=== PATIENT | male | born 1950 | race Caucasian/White ===

== ENCOUNTER 2021-02-02 20:40 | Inpatient (IN) | payer MEDICARE, MEDICAID, SELFPAY ==
[2021-02-02 20:47] VITALS: BMI 18.4
[2021-02-02 20:53] VITALS: BP 106/75; PULSE 75; RESP 19; TEMP 36.8; O2SAT 96
[2021-02-02 21:45] VITALS: O2SAT 96
[2021-02-02 22:44] LABS: NT-proBNP (BNP-Adult 18+) 178 pg/mL (<125)
--- NOTE | 2021-02-02 22:46 | PC.NURSE ---
approximately 1829: [place] [facility] spoke w/ Yocasta, RN who gave partial report on patient Mario Alberto: alert, oriented, pleasant. has had CIWA thru the day of 15-18 after drinking several boxes of wine/day and deciding to go clean and sober, ended up getting picked up by EMT's in the middle of the street. RN reports patient's only complaint at this time was c/o nausea, anxiety. but that he was clear and oriented, & understood the situation at hand. reportedly VS were stable except for HR in the 130's - 150's. denies CP, just has minor c/o nausea, anxiety and he is fidgeting. this RN asked what the CIWA was a this time accounting for the nausea, anxiety and fidgeting. she reported ciwa 10 & that his HR was 130's to 150's. I asked Yocasta to please address the tachy and that the CIWA has to be < 10 prior to transport. 1929: call from [place] from [facility] in [place]. reports patient has converted, is now NSR 72 & CIWA 9. 2100: arrived to floor via stretcher, accompanied by two devulcanizer tender. patient is very alert, boisterous. skin is flushed red, warm to touch. able to stand pivot from stretcher to bed, nearly falling off the side of the bed. able to state his name, birthday, unable to state what day it is, but knows to locate it on the white board. pleasant and cooperative. allowed seizure pads to be placed on bed. hx of DT's and ETOH withdrawal. requested something cold to drink, as his mouth very dry. EMT's did not have a diet order; reports the staff at [facility] [place] h20 w/o problem in ED. skin check w/ Rae at end of PM shift, skin is flushed red, warm. short PIV/ two lumen is on right wrist, wrapped w/ coban. Tele applied, Vs are stable. oriented to room, call light. IVF infusing per order. report on above given to DOMINGO ARIAS.
[2021-02-02 23:36] VITALS: BP 105/63; PULSE 75; RESP 16; TEMP 36.7; O2SAT 96
[2021-02-03] VITALS (11 sets, daily range): BP systolic 122–147; BP diastolic 64–93; PULSE 66–79; RESP 16–18; TEMP 36.1–37; O2SAT 94–98
[2021-02-03] MEDS: LACTATED RINGERS 1,000 ML 100 ML IV ×3 (00:26→18:30)
[2021-02-03 01:13] LABS: Clostridium Difficile Tox PCR Positive for C. diff (Negative)
[2021-02-03] MEDS: VANCOMYCIN 125 MG CAPSULE PO ×4 (01:53→20:23)
--- NOTE | 2021-02-03 02:50 | P.HP_ITS ---
History of Present Illness History of Present Illness Date Patient Seen: 02/02/21 Time Patient Seen: 21:44 Chief complaint: [facility] Narrative: Patient Bo Green is a 70-year-old male who of arrived at [facility] ED via EMS, although patient's account is slightly different he reports that he drove to the ED. patient has a long-term history of alcohol abuse (drinks 2 boxes of wine QD) and has had repeated alcohol withdrawal syndrome complications, also history of hypertension, BPH, scoliosis, arthritis, prostate and bladder cancer, stroke, hepatitis-C which has fully treated in remission, and hyperlipidemia. Patient r eports that he last had a drink at approximately 7:00 a.m. just a little bit, and then drove himself to the [facility] ED where he arrived by ambulance at approximately 9:10 a.m. ED diagnosis alcohol withdrawal syndrome with complication, bilateral low back pain with sciatica, enteritis, leukocytosis. Patient was then excepted by hospitalists here at [facility] for transfer due to requiring higher level of medical care. Patient arrived at approximately 9:30 p.m. to [facility]. Patient's vitals last documented at [place] were temp 97.9?, BP 106/70, HR 83, R 19, O2 saturation 96% on room air. Patient was found to have an elevated WBC 19.9, neutrophils #15.9, HGB 19.4, HCT 56.8, platelet 1015, potassium 5.2, glucose 113, total protein 8.2, total creatinine kinase 34, ammonia 23, EtOH 0.8330, lipase, TSH, and troponin all WNL, Mag 2.2. Patient did have an ammonia of 23, patient's cognitive baseline is unknown but no documentation of hepatic encephalopathy present on seizure really record. Given a loading dose of phenobarbital per [facility] protocol-patient received initial dose of 260 mg, followed by 130 mg, followed by an additional 130 mg, and 50 mg of fentanyl. Patient had a negative COVID test. CT of abdomen/pelvis with contrast demonstrated fluid throughout loops of small bowel with increased bowel wall enhancement and mild thickening possibly suggestive of enteritis. Redemonstration of horseshoe kidney, no hydronephrosis. No evidence of metastatic disease within the abdominal/pelvis. Redemonstrated of right basilar consolidation favored to represent rounded atelectasis/posttraumatic scarring. Patient had been seen on 01/23/2021 for a left arm cellulitis secondary to IV injection of heroin, possibly with a contaminated needle. Patient states that he never uses heroin but did on this 1 occasion. Patient denied use of any other recreational substances. Patient had been started on Bactrim and Keflex, left AC greatly improved no raised inflamed, or warmth, to site. Puncture james remains open and visible, mild erythema without drainage. Paramedics reported to the nurse upon admit that the patient had demonstrated atrial fibrillation du ringthe ambulance ride over, patient has no history of atrial fib and has demonstrated normal sinus rhythm on telemedicine. No other sites of erythema present. Patient is resting comfortably in bed denies chest pain, shortness of breath, nausea, vomiting, diarrhea, chills, fever, body aches, headache, changes in vision, weakness, tingling, blood in urine or stool, recent illness injury or trauma. Admitted for alcohol withdrawal, and leukocytosis of unknown etiology. Patient History Medical History (Updated 02/03/21 @ 03:20 by JOVON Cardenas) Abscess of left arm Alcohol abuse Arthritis BPH (benign prostatic hyperplasia) Essential hypertension History of bladder cancer History of hepatitis C virus infection History of prostate cancer Hyperlipidemia IV drug user Scoliosis Surgical History (Updated 02/03/21 @ 03:11 by JOVON Cardenas) History of appendectomy History of neck surgery History of prostate surgery History of surgery on wrist History of tonsillectomy Family & Social History Family History Mother Cancer Father Cancer Social History: household members friend(s) Prior Living Arrangements House Safety & Behavioral: Feels Safe in Current Yes Environment Been Physically Hurt or No Threatened By a Person Suicidal Ideation Description None Suicide Plan Description No Plan Tobacco & Substance use: alcohol intake current alcohol intake frequency 3 or more drinks per day, (reports 2 boxes of wine per day and/or 5 cans of beer per week) Substance Use Type marijuana, heroin reported use IV injection x1 once Tobacco: Quit April 2015, continues to use smokeless tobacco/2 Meds Home Medications and Allergies Home Medications Medication Instructions Recorded Confirmed Type Lactobacillus rhamnosus GG 15 1 cap PO DAILY 02/02/21 02/02/21 History billion cell sprinkle capsule ascorbic acid (vitamin C) 1,000 mg 1,000 mg PO DAILY 02/02/21 02/02/21 History tablet cephalexin 500 mg capsule 500 mg PO TID 02/02/21 02/02/21 History lorazepam 1 mg tablet 1 mg PO Q6H PRN 02/02/21 02/02/21 History metoprolol tartrate 25 mg tablet 25 mg PO BID 02/02/21 02/02/21 History oxycodone-acetaminophen 5 mg-325 1 tab PO Q6H PRN 02/02/21 02/02/21 History mg tablet sulfamethoxazole 800 1 tab PO BID 02/02/21 02/02/21 History mg-trimethoprim 160 mg tablet tamsulosin 0.4 mg capsule 0.4 mg PO BEDTIME 02/02/21 02/02/21 History Allergies Allergy/AdvReac Type Severity Reaction Status Date / Time No Known Drug Allergies Allergy Verified 02/02/21 22:57 Review of Systems Review of Systems Narrative: All 12 point systems reviewed with the patient and are negative except otherwise documented. Exam Vital Signs (past 8 hours): - 02/02/21 20:53 02/02/21 21:45 02/02/21 23:36 Temperature 98.2 F 98.0 F Pulse Rate 75 75 Respiratory Rate 19 16 Blood Pressure 106/75 105/63 Pulse Oximetry 96 96 96 02/03/21 01:30 Temperature Pulse Rate Respiratory Rate Blood Pressure Pulse Oximetry 96 Oxygen Delivery Method Room Air Oxygen Flow Rate 0 Narrative Exam Narrative: General: Patient is a thin poorly nourished delightful male, in no distress at this time. HEENT: Normocephalic, atraumatic, extraocular muscles intact, oral pharynx is clear and mucous membranes are dry. Neck is supple and symmetric, trachea is midline, no adenopathy, no thyroid enlargement, nontender, no masses palpated. Negative for JVD Chest: Normal AP diameter and contour without kyphoscoliosis, no nasal flaring, retractions, or tachypneic labored Lungs: Auscultation of all lung molina are clear dimished without adventitious sounds, wheezes, rhonchi, or rales. Cardio: S1 & S2 with regular rate and rhythm without murmur, rubs, or gallops, no carotid bruit, no cardiac pulsations present. Abdomen: Soft nontender, negative for organomegaly, or masses. Bowel sounds are present in all 4 quadrants without guarding or rebound, no CVA tenderness. Musculoskeletal: Muscle tone in decreased but are equal throughout, no deformity, crepitus, effusions, cyanosis, clubbing or edema present. Full range of motion intact radial and pedal pulses are normal. Noted Left AC, puncture sign dry with mild surrounding erythema without inflammation, tenderness or drainage. Skin: Warm dry and intact without rashes, ulcerations or petechiae. Neuro: Alert and orientated x3, sensation to touch intact, no gross deficits noted of cranial nerves. Psych: Patient has a poorly-kept appearance, appropriate affect, mental status attitude thought context and judgment are appropriate for age. Objective Labs Labs: Laboratory Results - last 24 hr 02/02/21 02/02/21 21:58 23:59 NT-Pro-B Natriuret Pep 178 H C. difficile Tox (PCR) Positive for c. diff H Assessment & Plan Assessment & Plan narrative: Patient Bo Green is a 70-year-old male with a long-term history of alcohol abuse (drinks 2 boxes of wine/5cans of beer QD), repeated alcohol withdrawal syndrome w/complications, hypertension, BPH, s coliosis, arthritis, prostate and bladder cancer, stroke, hepatitis-C (treated), and hyperlipidemia who was at [facility] ED for alcohol withdrawal syndrome with complications, an a recent history of left arm cellulitis secondary to IV heroin injection. Patient was transferred to [facility] for higher acuity medical care and management. 1. Alcohol withdrawal, in the setting of chronic alcohol abuse, tobacco abuse, with a secondary IV heroin injection resulting in cellulitis of left arm, acute, present on admission -I personally reviewed patient's medical records from [facility] - potassium 5.2, glucose 113, total protein 8.2, total creatinine kinase 34, ammonia 23, EtOH 0.8330, lipase, TSH, and troponin all WNL, Mag 2.2. -Patient did have an ammonia of 23, patient's cognitive baseline is unknown but no documentation of hepatic encephalopathy in [place] record. -Given loading dose of phenobarbital per [facility] protocol-patient received initial dose of 260 mg,130 mg, 130 mg, and 50 mg of fentanyl-at [place]. -patient to be monitored on tele medicine, vital signs q.4 hours, intake and output monitored Q shift, weight measure daily, diet:Heart Healthy. -monitor for hepatic encephalopathy, left arm cellulitis/worsening signs of infection, Sepsis, septic shock, seizures -once I determine the site of infection will prescribe appropriate antibiotics for coverage. - CIWA protocol- Ativan per protocol-may consider PRN or scheduled phenobarbital, aspiration, seizure, fall precautions/protocols -IV fluid: LR @100 cc/hour. - A.m. labs CBC, CMP, Mag, phosphorus, ammonia, PT and PTT-will continue to monitor electrolytes magnesium and phosphorus -patient given thiamin and folic acid -patient will be provided with alcohol, substance cessation, recommend outpatient Support Service management. 2. Leukocytosis of unknown etiology, acute, present on admission -WBC 19.9, neutrophils #15.9, HGB 19.4, HCT 56.8, platelet 1015 -CT ABD/pelvis with contrast: fluid throughout loops of small bowel with increased bowel wall enhancement and mild thickening possibly suggestive of enteritis. Redemonstration of horseshoe kidney, no hydronephrosis. No evidence of metastatic disease within the abdominal/pelvis. Redemonstrated of right basilar consolidation favored to represent rounded atelectasis/posttraumatic scarring. -Ordered: Blood cultures x2, CDiff, UA, BNP -IV Fluids: LR@100cc/Hr 3. Malnutrition as evidence by BMI of 18.5, acute on chronic, present on admission -recommend dietary consult for supplemental oral nutrition, and recommended high-protein intake diet of 1.2-1.5 grams/kg/day-for elevated ammonia Code status: Full code Surrogate decision maker: Anjana Marino COVID PCR: Negative 02/02/2021 COVID vaccination: Moderna 2020 DVT/VTE prophylaxis: Heparin 5000 units and SCDs Disposition: Expected length of stay greater than 2 midnights I have utilized all available immediate resources to obtain, update, or review the patient's current medications. I confirmed that the patient's advanced care plan is present, Code status is documented and/or surrogate decision maker is listed in the patient's medical record. COVID-19 COVID-19 status: Negative Result date/Date tested (Pos, Neg/Pending): 09/09/21 Time Spent With Patient Critical Care time: I spent a total of [] minutes of critical care time on this patient's care today; this time is exclusive of procedural time.
[2021-02-03 06:10] LABS: Add Manual Diff / Slide Review NO; Basophils Absolute Auto 100 /uL (0-100); Basophils Percent Auto 0.9 % (0-2); Eosinophils Absolute Auto 100 /uL (0-450); Eosinophils Percent Auto 1.2 % (2-4); Hematocrit 51.1 % (41-53); Hemoglobin 17.2 g/dL (13.5-17.5); Lymphocytes Absolute Auto 2600 /uL (1100-4500); Mean Corpuscular HGB Conc 33.6 % (30-36); Mean Corpuscular Hemoglobin 29.4 PG (26-34); Mean Corpuscular Volume 87.7 fL (80-100); Monocytes Absolute Auto 800 /uL (0-900); Monocytes Percent Auto 6.1 % (3-14); Neutrophils Absolute Auto 9200 /uL (1500-7000); Neutrophils Percent Auto 71.8 % (50-75); Platelet Count 771 X10^3/uL (150-400); Red Blood Cell Count 5.83 X10^6/uL (4.5-5.9); White Blood Cell Count 12.8 X10^3/uL (4.5-11.0)
[2021-02-03 06:13] LABS: Ammonia (NH3) < 9 umol/L (9-30)
[2021-02-03 06:19] LABS: INR 1.2 (0.9-1.3)
[2021-02-03 06:22] LABS: PTT Partial Thromboplastin Tim 34 SECONDS (26.4-36.2)
[2021-02-03 06:29] LABS: Alanine Aminotransferase 16 IU/L (<50); Albumin 3.6 g/dL (3.5-5.0); Albumin Globulin Ratio 1.3 (1.0-2.8); Alkaline Phosphatase 79 U/L (38-126); Aspartate Aminotransferase 28 IU/L (17-59); BUN Creatinine Ratio 29.3 (6-22); Bilirubin Total 0.5 mg/dL (0.2-1.3); Blood Urea Nitrogen 22 mg/dL (9-20); Calcium 8.5 mg/dL (8.4-10.2); Carbon Dioxide 27 mmol/L (22-32); Chloride 102 mmol/L (98-107); Cholesterol 188 mg/dL (140-199); Estimated Glomerular Filt Rate > 60.0 mL/min (>60); Globulin 2.8 g/dL (1.7-4.1); Glucose 105 mg/dL (80-110); HDL Cholesterol 65 mg/dL (40-60); HEMOLYSIS < 15 (0-50); LDL Cholesterol Calculated 108 mg/dL (<100); Magnesium 1.8 mg/dL (1.6-2.3); Potassium 4.7 mmol/L (3.4-5.1); Sodium 134 mmol/L (137-145); Total Protein 6.4 g/dL (6.3-8.2); Triglycerides 74 mg/dL (35-150)
[2021-02-03 06:43] LABS: Magnesium 1.9 mg/dL (1.6-2.3); Phosphorous 2.4 mg/dL (2.3-3.7)
[2021-02-03 08:14] LABS: Platelet Morphology Comment I; RBC Morphology Normal Morphology
[2021-02-03] MEDS: MULTIVITAMIN 1 TABLET 1 TAB PO (09:08)
[2021-02-03] MEDS: SODIUM CHLORIDE 0.9% FLUSH 10 ML IV (09:08)
[2021-02-03] MEDS: THIAMINE 100 MG TABLET PO (09:08)
[2021-02-03] MEDS: FOLIC ACID 1 MG TABLET PO (09:08)
[2021-02-03] MEDS: HEPARIN 5,000 UNIT/ML VIAL 5000 UNIT SUBCUT ×2 (09:08→20:23)
[2021-02-03] MEDS: LORazepam 1 MG TABLET PO (09:16)
[2021-02-03 10:42] LABS: Bacteria Urine None Seen; RBC Urine None Seen (0-5/HPF); WBC Urine None Seen (0-5/HPF)
[2021-02-03 10:53] LABS: Culture Indicated Urine Cult Not Indicated; Urine Comments Microscopic Normal
--- NOTE | 2021-02-03 15:03 | CM.IDA ---
Initial DCP Assessment Note Pt is a 70 yo male, resident of [place], arrives from [facility] after being found wandering the streets, intoxicated. Patient transferred to [facility] for medical management through ETOH w/d. H/o heavy ETOH and repeated alcohol withdrawal syndrome complications PCP: Zarina Faust [facility] Payer: Kayden CORLEY/OWEN Reviewed chart, pt discussed in multidisciplinary rounds. Patient is improving and may be medically stable for DC tomorrow. Met w/patient, introduced role. Patient lives in a cabin in [place] with 2 roommates. Patient states he is recently retired, not , no children, states he is use to being busy and lately boredom has been leading to his binge drinking. Patient has been drinking at least two boxes of wine daily for approx 2 weeks, was sober before that but could not give a period of sobriety. Patient admits to IVDU in his youth and once recently w/a girlfriend. Denies daily IVDU. Patient admits to symptoms of depression; loss of appetite, interrupted sleeping patterns, loss in interest in daily activities and increased drinking. This [facility] EDGER strongly encouraged patient to follow up with his PCP to discuss this, patient may be appropriate for antidepressant medication in addition to counseling. Patient tells this [facility] EDGER he will get a friend to take him home upon discharge and denies further needs at this time from this [facility] EDGER. Patient does not want outpatient resources for addiction services/treatment at this time. No needs expected from DC planning team although will remain available in case this changes before DC. Dr Hansen updated. MAXI Vila Discharge Planning/Care Management CM Discharge Assessment Start: 02/03/21 14:34 Freq: Status: Active Protocol: Document 02/03/21 14:57 RAMONA (Rec: 02/03/21 15:02 RAMONA [id number]) Discharge Planning Assessment Assigned Signal Circuit Designer MAXI Vila DPOA/Assigned Designee Name Lashell Marino, friend P# [phone] Contact Information Red Cheng, friend P# Advance Directives? No History Provided By Patient Prior Living Arrangements House Household Members friend(s) Type of transporation used prior to Drives own vehicle admit Independent with ADL's Yes Is patient alert and oriented? Yes Barriers to Discharge No Transportation Arrangement Likely friend vs taxi Referrals Initiated None needed
--- NOTE | 2021-02-03 16:11 | DIET.CONS ---
Dietary Consultation Note Admission Date: 02/02/2021 20:40 Assessment: 70 y/o M admitted with ETOH withdraw and malnutrition. Reports about 8.7% weight loss over the last 3-6 months. States he is unsure of weight or food intake hx and cannot give specifics. Overall, reports low or inconsistent PO over the last 6 months related to skipped meals (people he lives with often skip meals per his report) and/or ETOH use. Denies food insecurity. States he tries to eat three times per day at home. Likes protein shakes. Severe PCM presents with muscle loss indicated by pt's protruding clavicle, noticeable muscle loss over temporal region, substance abuse hx, low PO reported, and low BMI. Currently receiving thiamine, folic acid and MVI. Ht: 175.26 cm Wt: 58.1 kg BMI: 18.4 Reported UBW: 137-150# Last BM: 02/03/21 (02/03/21 01:55) MNA: 5 Edouard Score: 20 Diet: 02/03/21 Lunch General (Regular) Diet Diet Modifications: Percent of last meal consumed (last 48h) Percent Meal Consumed 100% 02/03/21 14:37 Labs: Refeeding labs reviewed and WNL at this time. RBC 5.83 X10^6/uL (4.5-5.9) 02/03/21 05:42 Hgb 17.2 g/dL (13.5-17.5) 02/03/21 05:42 Hct 51.1 % (41-53) 02/03/21 05:42 Creatinine 0.75 mg/dL (0.66-1.25) 02/03/21 05:42 NT-Pro-B Natriuret Pep 178 pg/mL (<125) H 02/02/21 21:58 Nutrition Diagnosis: Severe PCM r/t ETOH abuse and inadequate energy intake aeb muscle wasting, reported low PO, low BMI, and weight loss Interventions: ONS vanilla Ensure BID, pt at risk for refeeding Monitoring/Evaluations: PO, ONS tolerance, weight, refeeding labs
--- NOTE | 2021-02-03 16:11 | PM.PN.1 ---
Subjective Subjective Date Patient Seen: 02/03/21 Time Patient Seen: 08:00 Interval history: Today he is feeling improved. Per nurse overnight he had multiple loose stools. Today he has not had any further. No abdominal pain. He feels slightly shaky, but otherwise he says he has had bad alcohol withdrawal before and this time feels well. Exam Vital Signs (past 8 hours): - 02/03/21 08:44 02/03/21 09:00 02/03/21 10:51 Temperature 97.8 F Pulse Rate 76 78 Respiratory Rate 18 18 Blood Pressure 127/90 147/93 H Pulse Oximetry 98 94 02/03/21 11:00 02/03/21 13:00 Temperature 97.8 F Pulse Rate Respiratory Rate 18 Blood Pressure 147/93 H Pulse Oximetry 95 95 Oxygen Delivery Method Room Air Oxygen Flow Rate 0 Narrative Exam Narrative: General:?no acute distress Lungs:? clear bilateraly, with no wheezes, rhonchi, rales Cardio:? regular rate and rhythm with no murmurs Abdomen:? Soft nontender, no organomegaly SKIN: left AC track james, no evidence of infection Skin:? Warm dry and intact without rashes, ulcerations or petechiae.? Neuro:? Alert and orientated x3, moving all extremities with no gross deficits Psych:? pleasant, cooperative Objective Labs Result Diagrams: 02/03/21 05:42 02/03/21 05:42 Labs: Laboratory Results - last 24 hr 02/02/21 02/02/21 02/02/21 21:58 21:58 23:59 WBC RBC Hgb Hct MCV MCH MCHC RDW Plt Count Neut % (Auto) Lymph % (Auto) [place] % (Auto) Eos % (Auto) Baso % (Auto) Neut # (Auto) Lymph # (Auto) [place] # (Auto) Eos # (Auto) Baso # (Auto) Plt Morphology Comment RBC Morphology PT INR APTT Sodium Potassium Chloride Carbon Dioxide BUN Creatinine Estimated GFR BUN/Creatinine Ratio Glucose Calcium Phosphorus 2.4 Magnesium 1.9 Total Bilirubin AST ALT Alkaline Phosphatase Ammonia NT-Pro-B Natriuret Pep 178 H Total Protein Albumin Globulin Albumin/Globulin Ratio Triglycerides Cholesterol LDL Cholesterol, Calc HDL Cholesterol Urine RBC Urine WBC Urine Bacteria Ur Culture Indicated? Micro UA Comment C. difficile Tox (PCR) Positive for c. diff H 02/03/21 02/03/21 02/03/21 05:42 05:42 05:42 WBC 12.8 H RBC 5.83 Hgb 17.2 Hct 51.1 MCV 87.7 MCH 29.4 MCHC 33.6 RDW 16.0 H Plt Count 771 H Neut % (Auto) 71.8 Lymph % (Auto) 20.0 L [place] % (Auto) 6.1 Eos % (Auto) 1.2 L Baso % (Auto) 0.9 Neut # (Auto) 9200 H Lymph # (Auto) 2600 [place] # (Auto) 800 Eos # (Auto) 100 Baso # (Auto) 100 Plt Morphology Comment I RBC Morphology Normal morphology PT 13.0 H INR 1.2 APTT 34 Sodium 134 L Potassium 4.7 Chloride 102 Carbon Dioxide 27 BUN 22 H Creatinine 0.75 Estimated GFR > 60.0 BUN/Creatinine Ratio 29.3 H Glucose 105 Calcium 8.5 Phosphorus Magnesium 1.8 Total Bilirubin 0.5 AST 28 ALT 16 Alkaline Phosphatase 79 Ammonia NT-Pro-B Natriuret Pep Total Protein 6.4 Albumin 3.6 Globulin 2.8 Albumin/Globulin Ratio 1.3 Triglycerides 74 Cholesterol 188 LDL Cholesterol, Calc 108 H HDL Cholesterol 65 H Urine RBC Urine WBC Urine Bacteria Ur Culture Indicated? Micro UA Comment C. difficile Tox (PCR) 02/03/21 02/03/21 05:42 10:25 WBC RBC Hgb Hct MCV MCH MCHC RDW Plt Count Neut % (Auto) Lymph % (Auto) [place] % (Auto) Eos % (Auto) Baso % (Auto) Neut # (Auto) Lymph # (Auto) [place] # (Auto) Eos # (Auto) Baso # (Auto) Plt Morphology Comment RBC Morphology PT INR APTT Sodium Potassium Chloride Carbon Dioxide BUN Creatinine Estimated GFR BUN/Creatinine Ratio Glucose Calcium Phosphorus Magnesium Total Bilirubin AST ALT Alkaline Phosphatase Ammonia < 9 L NT-Pro-B Natriuret Pep Total Protein Albumin Globulin Albumin/Globulin Ratio Triglycerides Cholesterol LDL Cholesterol, Calc HDL Cholesterol Urine RBC None seen Urine WBC None seen Urine Bacteria None seen Ur Culture Indicated? Cult not indicated Micro UA Comment Microscopic normal C. difficile Tox (PCR) [facility] Medical History (Updated 02/03/21 @ 03:20 by RANJEET Cardenas-) Abscess of left arm Alcohol abuse Arthritis BPH (benign prostatic hyperplasia) Essential hypertension History of bladder cancer History of hepatitis C virus infection History of prostate cancer Hyperlipidemia IV drug user Scoliosis Surgical History (Updated 02/03/21 @ 03:11 by JOVON Cardenas) History of appendectomy History of neck surgery History of prostate surgery History of surgery on wrist History of tonsillectomy Family History Mother Cancer Father Cancer Social History household members: friend(s) alcohol intake: current Assessment & Plan Assessment & Plan narrative: Mr. Green is a 70M with H EtOH abuse, previous episodes of severe EtOH withdrawal, HTN, BPH, prostate/bladder CA, CVA, treated HepC who presents with alcohol withdrawal and found to have c diff colitis. 1. Alcohol withdrawal, in the setting of chronic alcohol abuse, tobacco abuse, and IV heroin abuse -patient loaded per phenobarb protocol in [facility] ED -currently feeling well -plan for CIWA here in hospital -ordered for thiamine, folate, MVI -sw services offered 2. C diff colitis -initial WBC 19.9, improved to 12.8 -CT abdomen showed fluid in small bowel -c diff positive -started PO vancomycin, plan for 2 week course 3. Severe protein calorie malnutrition as evidence by BMI of 18.5 -in setting of EtOH abuse -recommend dietary consult for supplemental oral nutrition, and recommended high-protein intake diet of 1.2-1.5 grams/kg/day-for elevated ammonia Patient doing well with etoh withdrawal, possible dc home within next day Time Spent With Patient Critical Care time: I spent a total of [] minutes of critical care time on this patient's care today; this time is exclusive of procedural time.
[2021-02-04] MEDS: VANCOMYCIN 125 MG CAPSULE PO ×2 (02:00→09:00)
[2021-02-04 02:10] VITALS: BP 133/83; PULSE 64; RESP 16; TEMP 36.8; O2SAT 97
[2021-02-04] MEDS: KETOROLAC 10 MG TABLET PO (02:19)
[2021-02-04 02:25] VITALS: O2SAT 97
[2021-02-04] MEDS: LACTATED RINGERS 1,000 ML 100 ML IV (04:27)
[2021-02-04 06:00] VITALS: O2SAT 96
[2021-02-04 07:00] VITALS: BP 134/92; PULSE 64; RESP 16; TEMP 36.4; O2SAT 97
[2021-02-04 07:50] LABS: Add Manual Diff / Slide Review NO; Basophils Absolute Auto 100 /uL (0-100); Basophils Percent Auto 1.1 % (0-2); Eosinophils Absolute Auto 100 /uL (0-450); Eosinophils Percent Auto 1.6 % (2-4); Lymphocytes Absolute Auto 2500 /uL (1100-4500); Lymphocytes Percent Auto 26.7 % (25-40); Mean Corpuscular HGB Conc 33.3 % (30-36); Mean Corpuscular Hemoglobin 29.8 PG (26-34); Mean Corpuscular Volume 89.6 fL (80-100); Monocytes Absolute Auto 400 /uL (0-900); Monocytes Percent Auto 4.5 % (3-14); Neutrophils Absolute Auto 6300 /uL (1500-7000); Neutrophils Percent Auto 66.1 % (50-75); Platelet Count 702 X10^3/uL (150-400); Red Blood Cell Count 5.69 X10^6/uL (4.5-5.9); Red Cell Distribution Width 16.3 % (11.6-14.8); White Blood Cell Count 9.5 X10^3/uL (4.5-11.0)
[2021-02-04 07:52] LABS: Phosphorous 3.5 mg/dL (2.3-3.7)
[2021-02-04 07:57] LABS: Ammonia (NH3) < 9 umol/L (9-30)
[2021-02-04] MEDS: THIAMINE 100 MG TABLET PO (09:03)
[2021-02-04] MEDS: MULTIVITAMIN 1 TABLET 1 TAB PO (09:03)
[2021-02-04] MEDS: FOLIC ACID 1 MG TABLET PO (09:03)
[2021-02-04] MEDS: HEPARIN 5,000 UNIT/ML VIAL 5000 UNIT SUBCUT (09:04)
[2021-02-04] MEDS: SODIUM CHLORIDE 0.9% FLUSH 10 ML IV (09:04)
--- NOTE | 2021-02-04 09:11 | P.DS_ITS ---
History of Present Illness History of Present Illness Chief complaint: [facility] Narrative: Per [place]andy [place]: Patient Bo Green is a 70-year-old male who of arrived at [facility] ED via EMS, although patient's account is slightly different he reports that he drove to the ED. patient has a long-term history of alcohol abuse (drinks 2 boxes of wine QD) and has had repeated alcohol withdrawal syndrome complications, also history of hypertension, BPH, scoliosis, arthritis, prostate and bladder cancer, stroke, hepatitis-C which has fully treated in remission, and hyperlipidemia. Patient reports that he last had a drink at approximately 7:00 a.m. just a little bit, and then drove himself to the [facility] ED where he arrived by ambulance at approximately 9:10 a.m. ED diagnosis alcohol withdrawal syndrome with complication, bilateral low back pain with sciatica, enteritis, leukocytosis. Patient was then excepted by hospitalists here at [place] for transfer due to requiring higher level of medical care. Patient arrived at approximately 9:30 p.m. to [facility]. Patient's vitals last documented at [place] were temp 97.9?, BP 106/70, HR 83, R 19, O2 saturation 96% on room air. Patient was found to have an elevated WBC 19.9, neutrophils #15.9, HGB 19.4, HCT 56.8, platelet 1015, potassium 5.2, glucose 113, total protein 8.2, total creatinine kinase 34, ammonia 23, EtOH 0.8330, lipase, TSH, and troponin all WNL, Mag 2.2. Patient did have an ammonia of 23, patient's cognitive baseline is unknown but no documentation of hepatic encephalopathy present on seizure really record. Given a loading dose of phenobarbital per [facility] protocol-patient received initial dose of 260 mg, followed by 130 mg, followed by an additional 130 mg, and 50 mg of fentanyl. Patient had a negative COVID test. CT of abdomen/pelvis with contrast demonst rated fluid throughout loops of small bowel with increased bowel wall enhancement and mild thickening possibly suggestive of enteritis. Redemonstration of horseshoe kidney, no hydronephrosis. No evidence of metastatic disease within the abdominal/pelvis. Redemonstrated of right basilar consolidation favored to represent rounded atelectasis/posttraumatic scarring. Patient had been seen on 01/23/2021 for a left arm cellulitis secondary to IV injection of heroin, possibly with a contaminated needle. Patient states that he never uses heroin but did on this 1 occasion. Patient denied use of any other recreational substances. Patient had been started on Bactrim and Keflex, left AC greatly improved no raised inflamed, or warmth, to site. Puncture james remains open and visible, mild erythema without drainage. Paramedics reported to the nurse upon admit that the patient had demonstrated atrial fibrillation duringthe ambulance ride over, patient has no history of atrial fib and has demo nstrated normal sinus rhythm on telemedicine. No other sites of erythema present. Patient is resting comfortably in bed denies chest pain, shortness of breath, nausea, vomiting, diarrhea, chills, fever, body aches, headache, changes in vision, weakness, tingling, blood in urine or stool, recent illness injury or trauma. Admitted for alcohol withdrawal, and leukocytosis of unknown etiology. Discharge Providers Provider Date of admission: 02/02/21 20:40 Discharge Date: 02/04/21 Primary care physician: Haydee Moore MD Consults: 02/02/21 21:41 Consult to Dietitian, Adult Routine Comment: Reason For Exam: ETOH W/D Discharge provider: Daniel Hansen MD Summary Hospital Course Discharge Diagnosis: 1. Alcohol withdrawal in setting of chronic alcohol abuse, tobacco abuse, IV heroin abuse 2. C diff colitis 3. Severe protein calorie malnutrition, BMI 18.5 Hospital Course: Mr. Green presented to another hospital in alcohol withdrawal. He had significant alcohol use, and was withdrawing within hours of stopping drinking. He was loaded with phenobarbital in the ED with a total of approximately 700mg. After this he had no significant withdrawal. He was mon itored for [facility]. He had diarrhea and was c diff positive, possibly because he had just finished antibiotics for a cellulitis. He was started on oral vancomycin. His abdominal symptoms improved and he was discharged on a two week course of oral vancomycin. He was seen by social insurance adviser and offered services. Exam Vital Signs (past 8 hours): Oxygen Delivery Method Room Air Oxygen Flow Rate 0 Narrative Exam Narrative: General: no acute distress Lungs: clear bilateraly, with no wheezes, rhonchi, rales Cardio: regular rate and rhythm with no murmurs Abdomen: Soft nontender, no organomegaly SKIN: left AC track james, no evidence of infection Skin: Warm dry and intact without rashes, ulcerations or petechiae. Neuro: Alert and orientated x3, moving all extremities with no gross deficits Psych: pleasant, cooperative Objective Labs Result Diagrams: 02/04/21 07:26 02/04/21 07:26 [facility] Medical History (Updated 02/03/21 @ 03:20 by RANJEET Cardenas-KELLY) Abscess of left arm Alcohol abuse Arthritis BPH (benign prostatic hyperplasia) Essential hypertension History of bladder cancer History of hepatitis C virus infection History of prostate cancer Hyperlipidemia IV drug user Scoliosis Surgical History (Updated 02/03/21 @ 03:11 by RANJEET Cradenas-KELLY) History of appendectomy History of neck surgery History of prostate surgery History of surgery on wrist History of tonsillectomy Family History Mother Cancer Father Cancer Social History household members: friend(s) alcohol intake: current Discharge Plan Discharge Plan Patient Disposition: Home Provider Discharge Comment: Mr. Green came in to the hospital with alcohol withdrawal. He was look to detox safely. He was given phenobarbital and did well. He had minimal withdrawal symptoms. He did have diarrhea and was found to have a bacterial infection in his colon (c. diff colitis). He was given antibiotics to complete a total two week treatment. He did discuss with social work about resources to help with remaining sober. Discharge orders & Medications Prescriptions: New thiamine HCl (vitamin B1) [Vitamin B-1] 100 mg Tablet 100 mg PO DAILY Qty: 30 RF: 0 vancomycin 125 mg Capsule 125 mg PO Q6H Qty: 48 RF: 0 folic acid 1 mg Tablet 1 mg PO DAILY Qty: 30 RF: 0 multivitamin with folic acid [Tab-A-Rivas] 400 mcg Tablet 1 tab PO DAILY Qty: 30 RF: 0 Continued ascorbic acid (vitamin C) 1,000 mg Tablet 1,000 mg PO DAILY RF: 0 oxycodone-acetaminophen 5-325 mg tablet 1 tab PO Q6H PRN (Reason: Pain (Scale Score 4-6)) RF: 0 tamsulosin 0.4 mg capsule 0.4 mg PO BEDTIME RF: 0 lorazepam 1 mg tablet 1 mg PO Q6H PRN (Reason: Anxiety) RF: 0 metoprolol tartrate 25 mg tablet 25 mg PO BID RF: 0 Lactobacillus rhamnosus GG 15 billion cell Capsule, Sprinkle 1 cap PO DAILY RF: 0 Discontinued sulfamethoxazole-trimethoprim 800-160 mg tablet 1 tab PO BID RF: 0 cephalexin 500 mg capsule 500 mg PO TID RF: 0 Follow up/Referrals: Haydee Moore MD [Primary Care Provider] - Diet/Activity/Treatments Diet: Regular Visit Report/Discharge Packet Instructions: DI for Alcohol Use Disorder, DI for Clostridioides difficile Infection Discharge Data Primary Care Provider: Haydee Moore Quality MIPS - DC The patient has current or prior documentation of left ventricular ejection fraction (LVEF) less than 40%, or moderate or severely depressed left ventricular systolic function.: No
[2021-02-04 10:00] VITALS: O2SAT 95
[2021-02-04 10:53] LABS: Alanine Aminotransferase 22 IU/L (<50); Albumin 3.4 g/dL (3.5-5.0); Albumin Globulin Ratio 1.3 (1.0-2.8); Alkaline Phosphatase 72 U/L (38-126); Aspartate Aminotransferase 57 IU/L (17-59); Bilirubin Total 0.5 mg/dL (0.2-1.3); Blood Urea Nitrogen 14 mg/dL (9-20); Calcium 8.7 mg/dL (8.4-10.2); Carbon Dioxide 23 mmol/L (22-32); Chloride 106 mmol/L (98-107); Estimated Glomerular Filt Rate > 60.0 mL/min (>60); Globulin 2.7 g/dL (1.7-4.1); Glucose 127 mg/dL (80-110); HEMOLYSIS 23 (0-50); Magnesium 1.6 mg/dL (1.6-2.3); Potassium 4.6 mmol/L (3.4-5.1); Sodium 135 mmol/L (137-145); Total Protein 6.1 g/dL (6.3-8.2)
[2021-02-04 11:03] VITALS: PULSE 68; RESP 16; O2SAT 97
--- NOTE | 2021-02-04 12:15 | PC.NURSE ---
Pt A&Ox3, in good spirits, denies pain. Good po intake this a.m. he reports loose stool improved and seems to be tapering off. x1 loose stool this a.m. Pt CIWA score is 0 this a.m. MD at bedside evaluating patient and he is cleared for discharge. Pt ambulating with more steady gait, dresses himself. He verbalizes understanding of discharge recommendations, medications, follow up with PCP, and activity. CAR PACKER escorted patient with all of his belongings via w/ch to private vehicle with a friend.
--- NOTE | 2021-02-04 13:23 | CM.DPNOTE ---
DC Note According to RN Karen, patient has DC order home and currently denies needs from this [employer]. RN to encourage patient to f/u w/ PCP re: discussion about symptoms of depression and treatment for such JW
[2021-02-04 14:55] LABS: C difficie Toxins A and B, EIA Positive (Negative)
== END 2021-02-04 11:50 | disposition home or self-care (01) | DRG 896 ==
PROVIDERS: Admitting Provider Nurse Practitioner Family; PCP Family Medicine; Referring Provider Nurse Practitioner Family; Visit Provider Nurse Practitioner Family
DX: F10.139 Alcohol abuse with withdrawal, unspecified (principal); E43 Unspecified severe protein-calorie malnutrition; L03.114 Cellulitis of left upper limb; Z68.1 Body mass index [BMI] 19.9 or less, adult; A04.72 Enterocolitis due to Clostridium difficile, not specified as recurrent; F11.10 Opioid abuse, uncomplicated; Z72.0 Tobacco use; N40.0 Benign prostatic hyperplasia without lower urinary tract symptoms; I10 Essential (primary) hypertension; Z20.822 Contact with and (suspected) exposure to COVID-19
CPT/HCPCS: 36415; 80053; 80061; 81015; 82140; 83735; 83880; 84100; 85025; 85610; 85730; 87040; 87324; 87493; 94760; J1644